=== PATIENT | male | born 1985 | race African-American/Black ===

== ENCOUNTER 2020-05-29 18:40 | Emergency (ER) | payer OTHER ==
[~2020-05-29] VITALS: Ht 188 cm; Wt 76.0 kg
[2020-05-29 18:53] VITALS: BP 114/78
[2020-05-29] MEDS ORDERED: KETOROLAC 60MG/2ML VIAL IM STA (20:22)
[2020-05-29] MEDS ORDERED: METOCLOPRAMIDE HCL 10MG/2ML VIAL IM ONE (20:30)
== END 2020-05-29 21:23 | disposition home or self-care (01) ==
LOC: ER 18:40
DX: R51.9 Headache, unspecified (principal); K29.70 Gastritis, unspecified, without bleeding; K02.9 Dental caries, unspecified
CPT/HCPCS: 96372; 99284; J1885; J2765

== ENCOUNTER → 2021-04-12 | Emergency (ER) | payer OTHER ==
[~2021-04-12] VITALS: Ht 175.3 cm; Wt 80.0 kg
[~2021-04-12] MED LIST: CYCL10TA7 MT; IBUP-2029 MT; IBUPROFEN 600MG TABLET PO ONE; METH-653 MT; METHOCARBAMOL 500MG TABLET PO ONE; NAPR-1176 MT
[2021-04-12 20:41] VITALS: BP 122/74
== END ==
LOC: ER 17:03
DX: S46.812A Strain of other muscles, fascia and tendons at shoulder and upper arm level, left arm, initial encounter (principal); W18.39XA Other fall on same level, initial encounter; Y93.89 Activity, other specified; Y92.89 Other specified places as the place of occurrence of the external cause; Y99.8 Other external cause status; R07.89 Other chest pain
CPT/HCPCS: 71101; 73030; 99284